=== PATIENT | female | born 1940 | race Caucasian/White ===

== ENCOUNTER 2016-11-25 19:09 | Emergency (ER) | payer MEDICARE, BC ==
[2016-11-25] MEDS ORDERED: Acetaminophen TAB* 325 MG PO ONE (19:21)
--- NOTE | 2016-11-25 20:18 | RAD ---
INDICATION: Intracranial injury. History of CVA COMPARISON: CT brain November 29, 2015 TECHNIQUE: Noncontrast axial source images were acquired from the skull base to the vertex. FINDINGS: Ventricles/sulci: There is advanced cortical atrophy with compensatory dilatation of the CSF spaces. Brain parenchyma: There is no acute focal parenchymal finding, evidence of intracranial mass, or intracranial mass effect. There is encephalomalacia in the distribution of the right middle cerebral artery consistent with old infarct. There is patchy decreased attenuation of the periventricular and subcortical white matter consistent with chronic microvascular ischemia. Intracranial hemorrhage:None. Extra-axial spaces: There are no abnormal extra axial fluid collections or evidence of extra-axial mass. Calvarium: There is no calvarial fracture or other calvarial abnormality. Scalp: Right frontal scalp laceration. Paranasal sinuses/mastoid: There is deformity of the right maxillary antrum which is not pneumatized. This could be related to previous injury or be developmental. Other: None. IMPRESSION: NO ACUTE INTRACRANIAL FINDINGS. 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
--- NOTE | 2016-11-25 21:04 | ED ---
Laceration/Wound HPI - HPI Summary HPI Summary: Patient was at dinner when she got up to leave and tripped on the rug, and fell. She hit her left knee and forehead on the ground. She was able to be helped up and EMS was called. She denies LOC, neck pain or vomiting. She suffered a cut to her forehead which was dressed and bleeding was controlled. She is not on blood thinners. She denies FLYNN, nausea, vision changes, N/T or decreased function in extremities. - History of Current Complaint Stated Complaint: FALL Time Seen by Provider: 11/25/16 19:13 Hx Obtained From: Patient Mechanism of Injury: Sharp/Blunt Trauma Onset/Duration: Sudden Onset Aggravating: Nothing Alleviating: Nothing Timing: Constant Onset Severity: Mild Current Severity: Mild Pain Intensity: 1 Associated Signs & Symptoms: Pain - left knee and forehead - Allergy/Home Medications Allergies/Adverse Reactions: Allergies Allergy/AdvReac Type Severity Reaction Status Date / Time No Known Allergies Allergy Verified 07/28/16 05:34 PMH/Surg Hx/FS Hx/Imm Hx Endocrine/Hematology History: Denies: Hx Anticoagulant Therapy Cardiovascular History: Reports: Hx Hypertension Respiratory History: Denies: Hx Asthma History: Reports: Hx Renal Disease Neurological History: Reports: Hx Dementia, Hx Seizures, Other Neuro Impairments /Disorders - mca stroke with hemiparesis, subdural hematoma Psychiatric History: Reports: Hx Depression Infectious Disease History: No Infectious Disease History: Denies: Traveled Outside the [place] in Last 30 Days - Family History Known Family History: Positive: None Family History: The patient is poor historian due to dementia - Social History Occupation: Retired Lives: [facility] Alcohol Use: None Substance Use Type: Reports: None Smoking Status (MU): Former Smoker Review of Systems Positive: Myalgia - left patella. Negative: Edema Positive: Other - 2 cm laceration to right forehead. Negative: Bruising Negative: Weakness, Paresthesia, Numbness All Other Systems Reviewed And Are Negative: Yes Physical Exam Triage Information Reviewed: Yes Vital Signs On Initial Exam: Initial Vitals Temp Pulse Resp BP Pulse Ox 98.2 F 71 18 135/89 98 11/25/16 19:22 11/25/16 19:22 11/25/16 19:22 11/25/16 19:22 11/25/16 19:22 Vital Signs Reviewed: Yes Appearance: Positive: Well-Appearing - Patient is quite verbal and very inquisitive during exam with appropriate questions and insight into her situation., Well-Nourished, Pain Distress Skin: Positive: Warm, Skin Color Reflects Adequate Perfusion, Dry, Tender - 2 cm flap to right forehead with a 1 cm skin tear superior to laceration, Soft Head/Face: Positive: Normal Head/Face Inspection - see skin comment Eyes: Positive: EOMI, GAVINO, Conjunctiva Clear ENT: Positive: Hearing grossly normal, Pharynx normal, TMs normal Neck: Positive: Supple, Nontender Respiratory/Lung Sounds: Positive: Clear to Auscultation, Breath Sounds Present Cardiovascular: Positive: RRR Abdomen Description: Positive: Nontender, Soft Musculoskeletal: Positive: Strength/ROM Intact - left knee with FROM without pain; negative patellar apprehension; bilateral hips with FROM without pain. Negative: Edema Left, Edema Right Neurological: Positive: Sensory/Motor Intact, Alert, Oriented to Person Place, Time, CN Intact II-III, NV Bundle Intact Distally, Unable to Assess Gait - patient reports normally being ambulatory with a walker Psychiatric: Positive: Affect/Mood Appropriate AVPU Assessment: Alert - Real Coma Scale Coma Scale Total: 15 Procedures - Laceration/Wound Repair 1 Location: face - right forehead Description: Linear - 2 cm flap Anesthesia: Local, 2.0%, Lido Length, Depth and Shape: 2 cm long, 1 cm wide, 3 mm deep Irrigated w/ Saline (ccs): 200 Laceration/Wound Explored: clean Closure: Single Layer Debridement: minimal Suture Type: Prolene - 6.0 Number of Sutures: 10 Layer Closure?: No Sterile Dressing Applied?: Yes Diagnostics - Vital Signs Vital Signs Temp Pulse Resp BP Pulse Ox 11/25/16 19:22 98.2 F 71 18 135/89 98 - Laboratory Lab Statement: Any lab studies that have been ordered have been reviewed, and results considered in the medical decision making process. - CT No standard instances CT Interpretation: No Acute Changes CT Interpretation Completed By: Radiologist Laceration Repair Course/Dx - Differential Dx Differental Diagnoses: Abrasion, Avulsion, Cellulitis, Dehiscence, Hematoma, Laceration, Puncture Wound - Clinical Impression Provider Diagnoses: Forehead laceration, Contusion of left knee Discharge - Discharge Plan Condition: Stable Disposition: HOME Patient Education Materials: Head Injury (ED), Facial Laceration (ED) Referrals: Ambrose Pat MD [Medical Doctor] - Additional Instructions: Please follow-up with your primary care provider for a wound check in 2-3 days. Have your sutures removed in 5 days. You can take your bandage off tomorrow and leave your wound open to air. You can shower and pat wound off afterwards. Use Tylenol for pain. Return to the emergency department if symptoms worsen.
[2016-11-25 21:23] VITALS: BP 130/84
== END 2016-11-25 21:21 | disposition home or self-care (01) ==
LOC: ED 19:09
DX: S01.81XA Laceration without foreign body of other part of head, initial encounter (principal); S80.02XA Contusion of left knee, initial encounter; M25.562 Pain in left knee; W19.XXXA Unspecified fall, initial encounter; Y93.9 Activity, unspecified; Y92.9 Unspecified place or not applicable; Y99.9 Unspecified external cause status; Z87.891 Personal history of nicotine dependence
CPT/HCPCS: 12011; 70450; 99282; A9270-GY